=== PATIENT | male | born 1975 | race Caucasian/White ===

== ENCOUNTER → 2017-07-01 | Day surgery (SDC) | payer OTHER ==
[~2017-07-01] VITALS: Ht 167.6 cm; Wt 89.8 kg
[~2017-07-01] MED LIST: ALLO-119 PO; FAMOTIDINE 20 MG TAB PO ONE; LEVO5TAB28 PO; LIDOCAINE MPF 1% 5 ML VIAL ONE; LIDOCAINE/SOD BICARB 8.4% SYR ID ONE; LISI5TAB25 PO; MIDAZOLAM 2 MG/2 ML VIAL IVP PRN; NORMOSOL R SOLN(*) 1000 ML BAG 1,000 ML IV PRN; PROPOFOL EMUL(*) 10MG/ML 20 ML 40 ML ONE; ROS10 PO; SIM10 PO
[2017-07-01 11:38] VITALS: BP 128/86
[2017-07-01 12:38] VITALS: BP 104/66
[2017-07-01 12:55] VITALS: BP 117/82
[2017-07-01 13:07] VITALS: BP 116/79
[2017-07-01 13:08] VITALS: BP 112/82
== END ==
LOC: OR 00:32
PROVIDERS: ATTEND Internal Medicine Gastroenterology
DX: K64.9 Unspecified hemorrhoids (principal); K57.30 Diverticulosis of large intestine without perforation or abscess without bleeding; K62.1 Rectal polyp; K63.3 Ulcer of intestine; N40.2 Nodular prostate without lower urinary tract symptoms
CPT/HCPCS: 00811; 45380; 88305; J2001; J2704

== ENCOUNTER 2017-07-03 22:37 | Emergency (ER) | payer OTHER ==
[~2017-07-03 22:37] MED LIST changes: -FAMOTIDINE 20 MG TAB PO ONE; -LIDOCAINE MPF 1% 5 ML VIAL ONE; -LIDOCAINE/SOD BICARB 8.4% SYR ID ONE; -MIDAZOLAM 2 MG/2 ML VIAL IVP PRN; -NORMOSOL R SOLN(*) 1000 ML BAG 1,000 ML IV PRN; -PROPOFOL EMUL(*) 10MG/ML 20 ML 40 ML ONE
--- NOTE | 2017-07-03 23:01 | ER Report ---
History and Physical Time Seen By MD: 22:52 Hx. of Stated Complaint: PT REPORTS NOTICED BLOOD IN URINE EARLIER TODAY. HAS GOTTEN WORSE. HPI/ROS CHIEF COMPLAINT: Blood in urine HISTORY OF PRESENT ILLNESS: 41-year-old male who presents with 1 day history of bloody urination reported as severe. He states he had a colonoscopy on which found a prostate nodule. He has never had hematuria in the past. He denies back pain. He reports mild suprapubic pain. He denies unprotected sexual intercourse. He denies any other bleeding or easy bruising. REVIEW OF SYSTEMS: Respiratory: No cough, no dyspnea. Cardiovascular: No chest pain, no palpitations. Gastrointestinal: No vomiting. Musculoskeletal: No back pain. Allergies: Coded Allergies: Penicillins (Verified Allergy, Severe, HIVES, 07/03/17) Home Meds Reported Medications Levocetirizine (XYZAL) 5 Mg Tab, 5 MG PO DAILY, TAB 06/24/17 Allopurinol (ZYLOPRIM) 300 Mg Tablet, 300 MG PO QDAY, TAB 06/24/17 Rosuvastatin Calcium (CRESTOR) 10 Mg Tab, 10 MG PO QDAY, #5 TAB 06/24/17 Lisinopril (LISINOPRIL) 5 Mg Tablet, 5 MG PO QDAY, TAB 06/24/17 Hx Smoking: No Smoking Status: Never Smoker Hx Substance Use Disorder: No Constitutional Vital Sign - Last 24 Hours 07/03/17 07/03/17 22:46 23:44 Temp 98.4 Pulse 81 81 Resp 14 14 B/P (MAP) 148/102 134/98 (110) Pulse Ox 92 95 O2 Delivery Room Air Room Air Physical Exam General Appearance: The patient is alert, has no immediate need for airway protection and no current signs of toxicity. Eyes: Pupils equal and round no injection. Respiratory: No respiratory distress. Gastrointestinal: Abdomen is soft and non tender, no masses. Musculoskeletal: Extremities have full range of motion and are non tender. Skin: No rashes or lesions. Male : Normal male circumcised genitalia, no lesions, no urethral discharge, no scrotal swelling or tenderness. DIFFERENTIAL DIAGNOSIS: After history and physical exam differential diagnosis was considered for hematuria including but not limited to cystitis, nephritis, renal colic, prostatitis. Medical Decision Making Data Points Laboratory Hematology Test 07/03/17 00:00 Urine Color Red Urine Clarity Cloudy Urine pH 6.0 pH (4.8-9.5) Urine Specific [place] 1.019 Urine Protein 30 mg/dL (NEGATIVE) Urine Glucose (UA) Negative mg/dL (NEGATIVE) Urine Ketones Negative mg/dL (NEGATIVE) Urine Blood Large (NEGATIVE) Urine Nitrite Negative (NEGATIVE) Urine Bilirubin Negative (NEGATIVE) Urine Urobilinogen Negative mg/dL (0.2-1.9) Urine Leukocyte Esterase Negative (NEGATIVE) Urine RBC 3556 /HPF (0-2/HPF) Urine WBC 27 /HPF (0-5/HPF) Urine Squamous Epithelial Cells None /LPF (</=FEW) Urine Amorphous Crystals Few /HPF Urine Bacteria Negative /HPF (NONE-FEW) Urine Mucus Few /HPF (NONE-FEW) Chemistry Test 07/03/17 00:00 Urine Color Red Urine Clarity Cloudy Urine pH 6.0 pH (4.8-9.5) Urine Specific [place] 1.019 Urine Protein 30 mg/dL (NEGATIVE) Urine Glucose (UA) Negative mg/dL (NEGATIVE) Urine Ketones Negative mg/dL (NEGATIVE) Urine Blood Large (NEGATIVE) Urine Nitrite Negative (NEGATIVE) Urine Bilirubin Negative (NEGATIVE) Urine Urobilinogen Negative mg/dL (0.2-1.9) Urine Leukocyte Esterase Negative (NEGATIVE) Urine RBC 3556 /HPF (0-2/HPF) Urine WBC 27 /HPF (0-5/HPF) Urine Squamous Epithelial Cells None /LPF (</=FEW) Urine Amorphous Crystals Few /HPF Urine Bacteria Negative /HPF (NONE-FEW) Urine Mucus Few /HPF (NONE-FEW) Urinalysis Test 07/03/17 00:00 Urine Color Red Urine Clarity Cloudy Urine pH 6.0 pH (4.8-9.5) Urine Specific [place] 1.019 Urine Protein 30 mg/dL (NEGATIVE) Urine Glucose (UA) Negative mg/dL (NEGATIVE) Urine Ketones Negative mg/dL (NEGATIVE) Urine Blood Large (NEGATIVE) Urine Nitrite Negative (NEGATIVE) Urine Bilirubin Negative (NEGATIVE) Urine Urobilinogen Negative mg/dL (0.2-1.9) Urine Leukocyte Esterase Negative (NEGATIVE) Urine RBC 3556 /HPF (0-2/HPF) Urine WBC 27 /HPF (0-5/HPF) Urine Squamous Epithelial Cells None /LPF (</=FEW) Urine Amorphous Crystals Few /HPF Urine Bacteria Negative /HPF (NONE-FEW) Urine Mucus Few /HPF (NONE-FEW) ED Course/Re-evaluation ED Course UA consistent with gross hematuria, infection unlikely. Patient's hematuria is likely related to recent procedure however other possibilities have not been ruled out. Referred to urology. He was unhappy he was unable to see a urologist and get a definitive diagnosis during his ER visit at midnight on a Wednesday. He was reassured that following up with urology as an outpatient was appropriate. Instructed to return if signs of infection or urinary retention develop. Decision to Disposition Date: July 03, 2017 Decision to Disposition Time: 23:30 Depart Departure Latest Vital Signs Vital Signs Date Time Temp Pulse Resp B/P (MAP) Pulse Ox O2 Delivery O2 Flow Rate FiO2 07/03/17 23:44 81 14 134/98 (110) 95 Room Air 07/03/17 22:46 98.4 Impression: Primary Impression: Hematuria Condition: Improved Disposition: HOME OR SELF-CARE Referrals: WINDY HARRIS (PCP) ARLET FAN MD Patient Instructions: Hematuria (ED) Additional Instructions: Follow-up with urology. Drink plenty of fluids. Return to the emergency department if he were unable to urinate, have fevers, or severe abdominal pain. Problem Qualifiers Primary Impression: Hematuria Hematuria type: gross Qualified Codes: R31.0 - Gross hematuria HARRIS DIETRICH MD July 03, 2017 23:01
[2017-07-03 23:44] VITALS: BP 134/98
== END 2017-07-03 23:45 | disposition home or self-care (01) ==
LOC: ER 22:46
DX: R31.0 Gross hematuria (principal)
CPT/HCPCS: 81001; 99282

== ENCOUNTER → 2017-07-07 | Outpatient (CLI) | payer OTHER ==
[~2017-07-07] MED LIST changes: +IOPAMIDOL 76% 50 ML INFUS BTL 50 ML ONE; +IOPAMIDOL 76% 75 ML INFUS BTL 75 ML ONE
--- NOTE | 2017-07-09 13:30 | RADIOLOGY IMAGING REPORT ---
FACILITY: [facility] - [place] PATIENT NAME: Justin Moralez : 1975 MR: [id number] V: [id number] EXAM DATE: ORDERING PHYSICIAN: ARLET FAN TECHNOLOGIST: Location: [facility] [place] Patient: Justin Moralez : 1975 Visit/Account:[id number] Date of Sevice: 07/07/2017 ABDOMEN/PELVIS W/WO CONTRAST HISTORY: Hematuria x4 days, history of kidney stones TECHNIQUE: Axial images acquired through the abdomen/pelvis both with and without IV contrast.. Merlin nal and sagittal reformatting also performed. Dose Lowering Technique One of the following dose optimization techniques was utilized in the performance of this exam: Autom ated exposure control; adjustment of the mA and/or kV according to the patient's size; or use of an i terative reconstruction technique. Specific details can be referenced in the facility's radiology C T exam operational policy. CONTRAST: 125 mL Isovue-370 COMPARISON: September 26, 2014 FINDINGS: Visualized lung bases: Negative. Hepatobiliary: Negative. Spleen: Negative. Adrenals: Negative. Pancreas: Negative. Kidneys ureters and bladder: There is an indentation along the bladder dome measuring approximately 1 .8 cm in AP dimension 1 cm in height and 3.5 cm in width. There appears to be an adjacent low-densit y region. Is unclear as to whether this actually represents a mass lesion or extrinsic mass effect f rom a fatty deposit . There Is a 2 mm nonobstructing calculus lower pole calyx of the right kidney . At least four nonobstructing calculi are seen in the lower pole calyces of the left kidney measuri ng up to 4 mm in diameter. Genitalia: Negative. GI: Negative. Vessels/spaces/nodes: Negative. Bones/soft tissues: No aggressive appearing bone lesions are seen. There are spondylotic changes in the lumbar spine Additional findings: None pertinent. IMPRESSION: Nonobstructing nephrolithiasis bilaterally There is an indentation along the bladder dome measuring approximately 1.8 x 1 x 3.5 cm with an adjac ent low density region. It is unclear as to whether this represents a mass lesion within the bladder or extrinsic mass effect from a fatty deposit. Cystoscopy is recommended for further evaluation giv en the clinical history Report Dictated By: Maddie Chan MD at 07/07/2017 2:11 PM Report E-Signed By: Maddie Chan MD at 07/07/2017 2:25 PM WSN:[email or web address]
== END ==
LOC: CT 07:28
PROVIDERS: ATTEND Urology
DX: N20.0 Calculus of kidney (principal)
CPT/HCPCS: 74178; Q9967

== ENCOUNTER → 2017-07-09 | Outpatient (REF) | payer OTHER ==
[~2017-07-09] MED LIST changes: -IOPAMIDOL 76% 50 ML INFUS BTL 50 ML ONE; -IOPAMIDOL 76% 75 ML INFUS BTL 75 ML ONE
== END ==
LOC: ZZSENDIN 12:00
PROVIDERS: ATTEND Urology
DX: R31.0 Gross hematuria (principal)
CPT/HCPCS: 88108

== ENCOUNTER → 2017-07-13 | Outpatient (CLI) | payer OTHER ==
[2017-07-13 11:55] LABS: PLATELET COUNT, AUTOMATED 235 K/uL (150-450)
== END ==
LOC: LAB 11:27
PROVIDERS: ATTEND Nurse Practitioner Family
DX: K52.9 Noninfective gastroenteritis and colitis, unspecified (principal); R10.84 Generalized abdominal pain
CPT/HCPCS: 36415; 80074; 82040; 82247; 82310; 82374; 82435; 82565; 82947; 84075; 84132; 84155; 84295; 84450; 84460; 84520; 85025; 86140; 86480

== ENCOUNTER → 2017-07-20 | Outpatient (CLI) | payer OTHER | LOC: LAB 11:29 | PROVIDERS: ATTEND Nurse Practitioner Family | DX: K52.9 Noninfective gastroenteritis and colitis, unspecified (principal) | CPT/HCPCS: 36415 ==

== ENCOUNTER → 2017-09-06 | Outpatient (CLI) | payer OTHER ==
[2017-09-06 13:56] LABS: PLATELET COUNT, AUTOMATED 239 K/uL (150-450)
== END ==
LOC: LAB 13:30
PROVIDERS: ATTEND Internal Medicine Gastroenterology
DX: K52.9 Noninfective gastroenteritis and colitis, unspecified (principal); R10.33 Periumbilical pain; R10.32 Left lower quadrant pain; R10.31 Right lower quadrant pain
CPT/HCPCS: 82040; 82247; 82310; 82374; 82435; 82565; 82947; 84075; 84132; 84155; 84295; 84450; 84460; 84520; 85025; 86140

== ENCOUNTER → 2017-10-04 | Outpatient (CLI) | payer OTHER ==
--- NOTE | 2017-10-04 15:20 | RADIOLOGY IMAGING REPORT ---
FACILITY: [facility] [place] PATIENT NAME: Justin Moralez : 1975 MR: [id number] V: [id number] EXAM DATE: ORDERING PHYSICIAN: WINDY HARRIS TECHNOLOGIST: Location: [facility] Patient: Justin Moralez : 1975 Visit/Account:[id number] Date of Sevice: 10/04/2017 Exam type: FOOT 3 VIEW LEFT History: Left foot pain, no known injury, pain worse on dorsal side of the first and second digit Comparison: None. Findings: There is no evidence of acute fracture-dislocation involving the left foot. No significant arthritic changes or radiopaque foreign bodies identified IMPRESSION: 1. No acute osteoarticular abnormality of the left foot is seen Report Dictated By: Maddie Chan MD at 10/04/2017 3:00 PM Report E-Signed By: Maddie Chan MD at 10/04/2017 3:16 PM WSN:[email or web address]
== END ==
LOC: RAD 13:49
PROVIDERS: ATTEND Nurse Practitioner Family
DX: M79.672 Pain in left foot (principal)

== ENCOUNTER → 2017-11-26 | Outpatient (CLI) | payer OTHER ==
--- NOTE | 2017-11-26 14:49 | RADIOLOGY IMAGING REPORT ---
FACILITY: [facility] - [place] PATIENT NAME: Justin Moralez : 1975 MR: [id number] V: [id number] EXAM DATE: ORDERING PHYSICIAN: WALLACE WESLEY TECHNOLOGIST: Location: [facility] Patient: Justin Moralez : 1975 Visit/Account:[id number] Date of Sevice: 11/26/2017 DEXA Scan Clinical history: Beni E deficiency. Comparison: None available. LUMBAR SPINE: The bone mineral density (BMD) measured from L1-L4 correlates with a Z-score -0.2 and a T-score of -0 .1 which is Normal as defined by the World Health Organization. The corresponding risk of fracture i n the lumbar spine is Not increased compared with a young adult reference population. HIP: Bone mineral density (BMD) measured in the Left total hip region correlates with a Z-score -0.3 and a T-score of -0.4 which is Normal as defined by the World Health Organization. The corresponding risk of fracture in the hip is Not increased compared with a young adult reference population. T score left femoral neck -0.7 Bone mineral density (BMD) measured in the Femoral Neck region measures 0.973 g/cm2. Impression: 1. Lumbar spine: Normal. 2. Left Hip: Normal. 3. Femoral Neck: Bone Mineral Density is 0.973 g/cm2 The next DEXA scan of this patient should include the following sites: L1-L4 and the left hip. FRAX? WHO Fracture Risk Assessment Tool link: <http://www.shef.ac.uk/FRAX/tool.jsp?locationValue=9> PLEASE NOTE: 1) The World Health Organization defines low BMD as follows: T-score Normal > -1 Osteopenia < -1 and > -2.5 Osteoporosis < -2.5 without fractures Established osteoporosis < -2.5 with fractures 2) In general, you may wish to consider: Diagnosis Treatment Follow-up DEXA Normal BMD Prevention 2-3 years Osteopenia Prevention/therapy 1-2 years Osteoporosis Therapy Yearly 3) Fracture risk estimated from the T-score is more accurate for vertebral fractures (often spontane ous) than for hip fractures. Report Dictated By: Maddie Chan MD at 11/26/2017 2:43 PM Report E-Signed By: Maddie Chan MD at 11/26/2017 2:44 PM WSN:[email or web address]
== END ==
LOC: RAD 14:03
PROVIDERS: ATTEND Nurse Practitioner Family
DX: S92.902K Unspecified fracture of left foot, subsequent encounter for fracture with nonunion (principal); S92.901K Unspecified fracture of right foot, subsequent encounter for fracture with nonunion; M79.672 Pain in left foot; E55.9 Vitamin D deficiency, unspecified
CPT/HCPCS: 77080

== ENCOUNTER → 2017-11-30 | Outpatient (CLI) | payer OTHER ==
[2017-11-30 14:22] LABS: PLATELET COUNT, AUTOMATED 240 K/uL (150-450)
== END ==
LOC: LAB 14:06
PROVIDERS: ATTEND Nurse Practitioner Family
DX: K51.80 Other ulcerative colitis without complications (principal); R94.5 Abnormal results of liver function studies; R19.7 Diarrhea, unspecified; I10 Essential (primary) hypertension
CPT/HCPCS: 36415; 82040; 82247; 82310; 82374; 82435; 82565; 82947; 84075; 84132; 84155; 84295; 84450; 84460; 84520; 85025; 86140

== ENCOUNTER → 2018-01-07 | Outpatient (CLI) | payer OTHER ==
[2018-01-07 09:09] LABS: PLATELET COUNT, AUTOMATED 221 K/uL (150-450)
== END ==
LOC: LAB 08:46
PROVIDERS: ATTEND Nurse Practitioner Family
DX: K52.9 Noninfective gastroenteritis and colitis, unspecified (principal); R10.32 Left lower quadrant pain; R10.31 Right lower quadrant pain; R10.84 Generalized abdominal pain; R10.33 Periumbilical pain
CPT/HCPCS: 36415; 82040; 82247; 82310; 82374; 82435; 82565; 82947; 84075; 84132; 84155; 84295; 84450; 84460; 84520; 85025; 86140

== ENCOUNTER → 2018-02-04 | Outpatient (CLI) | payer OTHER ==
--- NOTE | 2018-02-05 08:04 | RADIOLOGY IMAGING REPORT ---
[place] [facility] [place] Justin Moralez : 1975 MR: [id number] V: [id number] EXAM DATE: ORDERING PHYSICIAN: WALLACE WESLEY TECHNOLOGIST: Location: [facility] [place] Patient: Justin Moralez : 1975 Visit/Account:[id number] Date of Sevice: 02/04/2018 3 views right shoulder Indication: Pain radiating of the right shoulder Comparison: Unavailable Findings: Bony alignment is anatomic in the shoulder. No fracture or destructive osseous process. No significan t underlying degenerative change. Acromiohumeral interval is within normal limits. Right ribs and rig ht lung are unremarkable. IMPRESSION: 1. No acute osseous abnormality right shoulder. Report Dictated By: Luis Manuel Mas MD at 02/04/2018 4:23 PM Report E-Signed By: Luis Manuel Mas MD at 02/04/2018 4:23 PM WSN:[id number]
== END ==
LOC: RAD 14:44
PROVIDERS: ATTEND Nurse Practitioner Family
DX: M25.511 Pain in right shoulder (principal)

== ENCOUNTER 2018-04-23 12:38 | Emergency (ER) | payer OTHER ==
--- NOTE | 2018-04-23 12:46 | ER Report ---
History and Physical Time Seen By MD: 12:46 HPI/ROS CHIEF COMPLAINT: Right shoulder numbness chest discomfort HISTORY OF PRESENT ILLNESS: Patient is a 42-year-old male here complaining of right shoulder migratory numbness to chest and legs which started yesterday and persisted today. Patient is status post shoulder surgery. Patient denies chest pain, shortness breath, abdominal pain, nausea, vomiting, fevers or chills. Patient is in no acute distress at time of evaluation. REVIEW OF SYSTEMS: Constitutional: No fever, no chills. Eyes: No discharge. ENT: No sore throat. Cardiovascular: No chest pain, no palpitations. Respiratory: No cough, no shortness of breath. Gastrointestinal: No abdominal pain, no vomiting. Genitourinary: No hematuria. Musculoskeletal: No back pain. Skin: No rash Neurological: No headache. +Migratory numbness from right shoulder to chest to legs Allergies: Coded Allergies: Penicillins (Verified Allergy, Severe, HIVES, 07/03/17) Home Meds Active Scripts Lorazepam (ATIVAN) 0.5 Mg Tablet, 0.5 MG PO Q4-6H, #10 TAB Prov:GIANNA WILSON S DO 04/23/18 Reported Medications Tramadol Hcl (TRAMADOL HCL) 50 Mg Tablet, 50-100 MG PO Q4-6H, TAB 04/23/18 Levocetirizine (XYZAL) 5 Mg Tab, 5 MG PO DAILY, TAB 06/24/17 Allopurinol (ZYLOPRIM) 300 Mg Tablet, 300 MG PO QDAY, TAB 06/24/17 Rosuvastatin Calcium (CRESTOR) 10 Mg Tab, 10 MG PO QDAY, #5 TAB 06/24/17 Lisinopril (LISINOPRIL) 5 Mg Tablet, 5 MG PO QDAY, TAB 06/24/17 Hx Smoking: No Smoking Status: Never Smoker Hx Substance Use Disorder: No Constitutional Vital Sign - Last 24 Hours 04/23/18 12:48 Temp 98.5 Pulse 85 Resp 18 B/P (MAP) 161/108 Pulse Ox 96 O2 Delivery Room Air Physical Exam General Appearance: The patient is alert, has no immediate need for airway protection and no signs of toxicity. No acute distress Eyes: Pupils equal and round no pallor or injection. ENT, Mouth: Mucous membranes are moist. Respiratory: There are no retractions, lungs are clear to auscultation. Cardiovascular: Regular rate and rhythm. Gastrointestinal: Abdomen is soft and non tender, no masses, bowel sounds normal. Neurological: No focal neurological deficits on examination Skin: Warm and dry, no rashes. Musculoskeletal: Neck is supple non tender. Extremities are nontender, nonswollen and have full range of motion. DIFFERENTIAL DIAGNOSIS: After history and physical exam differential diagnosis was considered for electrolyte abnormality, nerve impingement, dehydration, anxiety Medical Decision Making Data Points Result Diagram: 04/23/18 1319 04/23/18 1319 Laboratory Hematology Test 04/23/18 13:19 Red Blood Count 5.72 M/uL (4.00-5.60) Mean Corpuscular Volume 84.2 fL (80.0-96.0) Mean Corpuscular Hemoglobin 28.7 pg (26.0-33.0) Mean Corpuscular Hemoglobin Concent 34.1 g/dL (32.0-36.0) Red Cell Distribution Width 14.3 % (11.5-14.5) Mean Platelet Volume 8.3 fL (7.2-11.1) Neutrophils (%) (Auto) 76.0 % (39.4-72.5) Lymphocytes (%) (Auto) 15.5 % (17.6-49.6) Monocytes (%) (Auto) 5.9 % (4.1-12.4) Eosinophils (%) (Auto) 1.7 % (0.4-6.7) Basophils (%) (Auto) 0.9 % (0.3-1.4) Nucleated RBC Relative Count (auto) 0.2 /100WBC Neutrophils # (Auto) 6.7 K/uL (2.0-7.4) Lymphocytes # (Auto) 1.4 K/uL (1.3-3.6) Monocytes # (Auto) 0.5 K/uL (0.3-1.0) Eosinophils # (Auto) 0.2 K/uL (0.0-0.5) Basophils # (Auto) 0.1 K/uL (0.0-0.1) Nucleated RBC Absolute Count (auto) 0.02 K/uL Peripheral Blood Smear No Y/N Sodium Level 142 mmol/L (137-145) Potassium Level 4.3 mmol/L (3.5-5.0) Chloride Level 105 mmol/L (98-107) Carbon Dioxide Level 24 mmol/L (22-30) Blood Urea Nitrogen 17 mg/dl (9-21) Creatinine 0.90 mg/dl (0.66-1.25) Glomerular Filtration Rate Calc > 60.0 Random Glucose 83 mg/dl (75-110) Calcium Level 9.9 mg/dl (8.4-10.2) Total Bilirubin 2.3 mg/dl (0.2-1.3) Aspartate Amino Transf (AST/SGOT) 29 U/L (0-35) Alanine Aminotransferase (ALT/SGPT) 53 U/L (0-56) Alkaline Phosphatase 116 U/L (0-126) Troponin I < 0.012 ng/ml Total Protein 8.5 g/dl (6.3-8.2) Albumin 5.2 g/dl (3.5-5.0) Chemistry Test 04/23/18 13:19 White Blood Count 8.9 k/uL (4.5-11.0) Red Blood Count 5.72 M/uL (4.00-5.60) Hemoglobin 16.4 g/dL (14.0-18.0) Hematocrit 48.2 % (42.0-52.0) Mean Corpuscular Volume 84.2 fL (80.0-96.0) Mean Corpuscular Hemoglobin 28.7 pg (26.0-33.0) Mean Corpuscular Hemoglobin Concent 34.1 g/dL (32.0-36.0) Red Cell Distribution Width 14.3 % (11.5-14.5) Platelet Count 269 K/uL (150-450) Mean Platelet Volume 8.3 fL (7.2-11.1) Neutrophils (%) (Auto) 76.0 % (39.4-72.5) Lymphocytes (%) (Auto) 15.5 % (17.6-49.6) Monocytes (%) (Auto) 5.9 % (4.1-12.4) Eosinophils (%) (Auto) 1.7 % (0.4-6.7) Basophils (%) (Auto) 0.9 % (0.3-1.4) Nucleated RBC Relative Count (auto) 0.2 /100WBC Neutrophils # (Auto) 6.7 K/uL (2.0-7.4) Lymphocytes # (Auto) 1.4 K/uL (1.3-3.6) Monocytes # (Auto) 0.5 K/uL (0.3-1.0) Eosinophils # (Auto) 0.2 K/uL (0.0-0.5) Basophils # (Auto) 0.1 K/uL (0.0-0.1) Nucleated RBC Absolute Count (auto) 0.02 K/uL Peripheral Blood Smear No Y/N Glomerular Filtration Rate Calc > 60.0 Calcium Level 9.9 mg/dl (8.4-10.2) Total Bilirubin 2.3 mg/dl (0.2-1.3) Aspartate Amino Transf (AST/SGOT) 29 U/L (0-35) Alanine Aminotransferase (ALT/SGPT) 53 U/L (0-56) Alkaline Phosphatase 116 U/L (0-126) Troponin I < 0.012 ng/ml Total Protein 8.5 g/dl (6.3-8.2) Albumin 5.2 g/dl (3.5-5.0) EKG/Imaging Imaging PATIENT NAME: Justin Moralez : 1975 MR: [id number] V: [id number] EXAM DATE: ORDERING PHYSICIAN: GIANNA WILSON TECHNOLOGIST: Location: [facility] [place] Patient: Justin Moralez : 1975 Visit/Account:[id number] Date of Sevice: 04/23/2018 CHEST SINGLE AP Indication: Chest discomfort.. Comparison: None available Findings: Cardiomediastinal silhouette and pulmonary vessels within normal limits. There is no focal infiltrate or lobar consolidation. No pneumothorax or pleural effusion. No nodule. Upper abdomen is unremarkable. No acute bony abnormality. IMPRESSION: 1. No acute cardiopulmonary process. ED Course/Re-evaluation ED Course Patient is a 42-year-old male here with complaints of right shoulder pain and numbness, paresthesias which have been migratory. Chest x-ray showed no acute findings. Labs are unremarkable. Troponin negative. Patient was given Ativan with significant relief of symptoms. Prescription provided for outpatient treatment. Recommend close follow-up with PCP. Return precautions provided. Decision to Disposition Date: Apr 23, 2018 Decision to Disposition Time: 14:28 Depart Departure Latest Vital Signs Vital Signs Date Time Temp Pulse Resp B/P (MAP) Pulse Ox O2 Delivery O2 Flow Rate FiO2 04/23/18 12:48 98.5 85 18 161/108 96 Room Air Impression: Primary Impression: Numbness Condition: Improved Disposition: HOME OR SELF-CARE Referrals: WINDY HARRIS (PCP) New Scripts Lorazepam (ATIVAN) 0.5 Mg Tablet 0.5 MG PO Q4-6H, #10 TAB Prov: GIANNA WILSON DO 04/23/18 Additional Instructions: Please follow-up with your family doctor on Wednesday. You may take 0.5 mg of Ativan as needed every 4-6 hours for symptom management. Please do not drink or drive while on this medication. Please return immediately if you develop worsening symptoms, chest pain, shortness breath, fevers or chills. GIANNA WILSON DO Apr 23, 2018 12:46
[2018-04-23 12:48] VITALS: BP 161/108
[2018-04-23] MEDS ORDERED: LORazepam 0.5 MG TAB PO ONE (13:15)
[2018-04-23] MEDS ORDERED: TRAM-420 PO (13:20)
[2018-04-23 13:28] LABS: PLATELET COUNT, AUTOMATED 269 K/uL (150-450)
--- NOTE | 2018-04-23 13:52 | RADIOLOGY IMAGING REPORT ---
FACILITY: [facility] - [place] PATIENT NAME: Justin Moralez : 1975 MR: [id number] V: [id number] EXAM DATE: ORDERING PHYSICIAN: GIANNA WILSON TECHNOLOGIST: Location: [facility] Patient: Justin Moralez : 1975 Visit/Account:[id number] Date of Sevice: 04/23/2018 CHEST SINGLE AP Indication: Chest discomfort.. Comparison: None available Findings: Cardiomediastinal silhouette and pulmonary vessels within normal limits. There is no focal infiltrate or lobar consolidation. No pneumothorax or pleural effusion. No nodule. Upper abdomen is unremarkable. No acute bony abnormality. IMPRESSION: 1. No acute cardiopulmonary process. Report Dictated By: Fernando Crook at 04/23/2018 1:47 PM Report E-Signed By: Fernando Crook at 04/23/2018 1:48 PM WSN:[id number]
[2018-04-23] MEDS ORDERED: LORA-1455 PO (14:32)
== END 2018-04-23 14:35 | disposition home or self-care (01) ==
LOC: ER 12:48
DX: R20.0 Anesthesia of skin (principal)
CPT/HCPCS: 36415; 71045; 84484; 85025; 99283; A4565; 82040; 82247; 82310; 82374; 82435; 82565; 82947; 84075; 84132; 84155; 84295; 84450; 84460; 84520

== ENCOUNTER → 2018-05-10 | Outpatient (CLI) | payer OTHER ==
[~2018-05-10] MED LIST changes: +LORA-1455 PO; -ROS10 PO; +ROSU10TA PO; +TRAM-420 PO
[2018-05-10 09:57] LABS: PLATELET COUNT, AUTOMATED 224 K/uL (150-450)
== END ==
LOC: LAB 09:36
PROVIDERS: ATTEND Nurse Practitioner Family
DX: K52.9 Noninfective gastroenteritis and colitis, unspecified (principal); R10.32 Left lower quadrant pain; R10.31 Right lower quadrant pain; R10.84 Generalized abdominal pain; R10.33 Periumbilical pain
CPT/HCPCS: 36415; 82040; 82247; 82306; 82310; 82374; 82435; 82565; 82947; 84075; 84132; 84155; 84295; 84450; 84460; 84520; 85025; 86140

== ENCOUNTER → 2018-08-31 | Outpatient (CLI) | payer OTHER ==
[2018-08-31 14:57] LABS: PLATELET COUNT, AUTOMATED 246 K/uL (150-450)
[2018-08-31 15:07] LABS: LDL CHOLESTEROL 64 mg/dl
== END ==
LOC: LAB 14:32
PROVIDERS: ATTEND Nurse Practitioner Family
DX: R53.81 Other malaise (principal); E87.8 Other disorders of electrolyte and fluid balance, not elsewhere classified; D50.9 Iron deficiency anemia, unspecified; E78.00 Pure hypercholesterolemia, unspecified; E55.9 Vitamin D deficiency, unspecified; E53.8 Deficiency of other specified B group vitamins
CPT/HCPCS: 36415; 82040; 82247; 82306; 82310; 82374; 82435; 82465; 82565; 82607; 82728; 82947; 83718; 84075; 84132; 84155; 84295; 84450; 84460; 84478; 84520; 85025